=== PATIENT | male | born 1980 | race Caucasian/White ===

== ENCOUNTER 2019-10-17 22:16 | Emergency (ER) | payer SELFPAY ==
[2019-10-17] MEDS ORDERED: NEOMYCIN-BACITRACIN-POLYMYXIN 0.9 GM UD TOP ONE (22:35)
[2019-10-17] MEDS ORDERED: AMOXICILLIN & POT CLAVULANATE 875 MG TAB PO ONE (22:37)
[2019-10-17] MEDS ORDERED: SULFA/TRIMETH 800/160 (DS) TAB 1 EA TAB PO ONE (22:37)
--- NOTE | 2019-10-17 22:40 | ED.PDOC ---
History of Present Illness - General Time Seen by Provider: 10/17/19 22:17 Source: patient Exam Limitations: no limitations - History of Present Illness Initial Comments: The patient is a 39-year-old male presented emergency room secondary to dehiscence of his thumb laceration wound to the left thumb over the metacarpal phalangeal joint. He has limited abduction and extension as well. It was documented at the time by the emergency room physician that saw him on the fourth of this month that range of motion and strength were intact. It would seem that either he is getting some scarring of the extensor tendons or one has ruptured in the interim. The laceration occurred approximately 17 days ago. He finished a 14-day course of oral antibiotics. He thinks the wound opened up for 5 days ago. There is some mild surrounding erythema. No real extending erythema. Minimal drainage. Timing/Duration: unsure Severity: mild Improving Factors: nothing Worsening Factors: nothing Associated Symptoms: denies symptoms Allergies/Adverse Reactions: Allergies NO KNOWN ALLERGY Allergy (Verified 01/27/16 17:22) Home Medications: Ambulatory Orders Acetamin W/Cod #3 Tab [Tylenol #3 Tab] 1 ea PO Q6H PRN #12 tab 01/27/16 Clindamycin HCl [Cleocin] 300 mg PO TID #42 cap 01/27/16 Sulfa/Trimeth 800/160 (Ds) Tab [Bactrim DS Tab] 1 ea PO BID #20 tab 01/27/16 Amoxicillin & Pot Clavulanate [Augmentin Tab] 875 mg PO BID 7 Days #14 tab /11/15 Ibuprofen [Motrin] 800 mg PO Q6HR PRN #15 tab 09/30/19 Amoxicillin & Pot Clavulanate [Augmentin Tab] 875 mg PO BID #20 tab 10/17/19 Sulfa/Trimeth 800/160 (Ds) Tab [Bactrim DS Tab] 1 ea PO BID #20 tab 10/17/19 Review of Systems - Review of Systems Constitutional: States: no symptoms reported EENTM: States: no symptoms reported Respiratory: States: no symptoms reported Cardiology: States: no symptoms reported Gastrointestinal/Abdominal: States: no symptoms reported Genitourinary: States: no symptoms reported Musculoskeletal: States: see HPI Skin: States: see HPI Neurological: States: no symptoms reported Endocrine: States: no symptoms reported All other Systems: No Change from Baseline Past Medical History (General) - Patient Medical History Hx Seizures: No Hx Stroke: No Hx Dementia: No Hx Asthma: No Hx of COPD: No Hx Cardiac Disorders: No Hx Congestive Heart Failure: No Hx Pacemaker: No Hx Hypertension: No Hx Thyroid Disease: No Hx Diabetes: No Hx Gastroesophageal Reflux: No Hx Renal Disease: No Hx Cancer: No Hx of HIV: No Hx Hepatitis C: No Hx MRSA: Yes MRSA Source:: Wound Surgical History: other - Vaccination History Hx Tetanus, Diphtheria Vaccination: Yes Hx Influenza Vaccination: No Hx Pneumococcal Vaccination: No - Social History Hx Tobacco Use: Yes Hx Chewing Tobacco Use: No Hx Alcohol Use: Yes Hx Substance Use: No Hx Substance Use Treatment: No Hx Depression: No Feels Threatened In Home Enviroment: No Feels Threatened In a Relationship: No Hx Physical Abuse: No Hx Emotional Abuse: No Hx Suspected Abuse: No - Female History Patient : No Family Medical History - Family History Father Age (years): 50 Living Status: Still Living Hx Family Diabetes: Yes Hx Family Cancer: Yes - Prostate Mother Living Status: Hx Family;Other: MS and emphysema Physical Exam - Physical Exam General Appearance: Alert, Comfortable, No apparent distress Eye Exam: bilateral normal Ears, Nose, Throat: hearing grossly normal Neck: full range of motion, supple Respiratory: no respiratory distress, no accessory muscle use Cardiovascular/Chest: normal peripheral pulses, no edema, other - Regular rate Rectal Exam: deferred Extremity: normal capillary refill, other - See history of present illness. 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 Comments: Vital Signs - 24 hr 10/17/19 22:22 Temperature 97.3 F L Pulse Rate [ 107 H Pulse ox] Respiratory 18 Rate Blood Pressure 154/88 [Left Arm] O2 Sat by Pulse 97 Oximetry Progress - Progress Progress: 10/17/19 22:41 The patient is a 39-year-old male presents emergency room with dehiscence of the wound over the metacarpophalangeal joint of the first digit of the left hand. He does also appear to have a deficit with extension of the thumb that is new since the time of repair. The patient is going to be placed on Bactrim and Augmentin for the next 10 days. He needs to wash the wound twice daily with Dial soap and water and then cover the wound with Neosporin and a Band-Aid. He also needs to use a thumb spica splint which he will need to obtain from [facility] or a pharmacy in order to keep the thumb joint from bending, continuing to open up the wound. I do want him to follow back up with his primary care doctor later this coming week for reevaluation to make sure it is trying to heal up. ER warnings are given. Saturday morning he should contact Dr. Palma's office to see who he recommends for a hand surgeon as the hand surgeon in [place] has vacated. [email or web address] [id number] Departure - Departure Clinical Impression: Wound dehiscence, Wound infection Disposition: Discharge to Home or Self Care Condition: Fair Diet: regular diet Activity: no pushing/pulling with affected limb Prescriptions: Amoxicillin & Pot Clavulanate [Augmentin Tab] 875 mg PO BID #20 tab Sulfa/Trimeth 800/160 (Ds) Tab [Bactrim DS Tab] 1 ea PO BID #20 tab Home Medications: Ambulatory Orders Acetamin W/Cod #3 Tab [Tylenol #3 Tab] 1 ea PO Q6H PRN #12 tab 01/27/16 Clindamycin HCl [Cleocin] 300 mg PO TID #42 cap 01/27/16 Sulfa/Trimeth 800/160 (Ds) Tab [Bactrim DS Tab] 1 ea PO BID #20 tab 01/27/16 Amoxicillin & Pot Clavulanate [Augmentin Tab] 875 mg PO BID 7 Days #14 tab 09/30/19 Ibuprofen [Motrin] 800 mg PO Q6HR PRN #15 tab 09/30/19 Amoxicillin & Pot Clavulanate [Augmentin Tab] 875 mg PO BID #20 tab 10/17/19 Sulfa/Trimeth 800/160 (Ds) Tab [Bactrim DS Tab] 1 ea PO BID #20 tab 10/17/19 Additional Instructions: The patient is a 39-year-old male presents emergency room with dehiscence of the wound over the metacarpophalangeal joint of the first digit of the left hand. He does also appear to have a deficit with extension of the thumb that is new since the time of repair. The patient is going to be placed on Bactrim and Augmentin for the next 10 days. He needs to wash the wound twice daily with Dial soap and water and then cover the wound with Neosporin and a Band-Aid. He also needs to use a thumb spica splint which [place] a pharmacy in order to keep the thumb joint from bending, continuing to open up the wound. I do want him to follow back up with his primary care doctor later this coming week for reevaluation to make sure it is trying to heal up. ER warnings are given. Saturday morning he should contact Dr. Palma's office to see who he recommends for a hand surgeon as the hand surgeon in [place] has vacated.
[2019-10-17 23:07] VITALS: BP 134/72; TEMP 98.1; O2SAT 99
== END 2019-10-17 22:55 | disposition home or self-care (01) ==
LOC: ER 22:16
DX: T81.33XA Disruption of traumatic injury wound repair, initial encounter (principal); L08.9 Local infection of the skin and subcutaneous tissue, unspecified; Z86.14 Personal history of Methicillin resistant Staphylococcus aureus infection; Z87.891 Personal history of nicotine dependence